=== PATIENT | female | born 1940 | race Caucasian/White ===

== ENCOUNTER 2016-11-13 21:09 | Emergency (ER) | payer MEDICARE ==
--- NOTE | ~2016-11-13 | CT2 ---
[facility] A Service of [facility] RADIOLOGY TEXT RESULTS PATIENT: ROBYN ARELLANO LOCATION: [facility] : 38 UNIT #: [id number] AGE: [address]: Jag Crow MD SEX: F ORDER DR: [id number] [facility] [address] [place], [place] [address] [id number] E MR#: [id number] Acc #: [id number] NAME: ROBYN ARELLANO : 1940 SEX: F STUDY DATE/TIME: 11/13/2016 23:52 UNIT: [facility] ROOM: STUDY DESCRIPTION: CT Abd and Pelv W Cont Attending Physician: Jag Crow M.D. Ordering Physician: Jag Crow M.D. Primary Care Physician: Tomas Torrez M.D. MEDICAL IMAGING REPORT This report is preliminary unless electronic signature is present EXAM Abdomen and pelvis CT with contrast, 11/13/2016. INDICATION 75-year-old female with right upper quadrant pain 2 days and nausea. History of hysterectomy, colectomy, diverticulitis. TECHNIQUE Contrast-enhanced abdomen and pelvis CT was performed. This CT exam was performed with one or more of the following radiation dose reduction techniques: automatic exposure control, adjustment of mA and/or kV according to patient size, and iterative reconstruction. COMPARISON STUDIES We have no comparison studies. FINDINGS CT ABDOMEN: Included lung bases demonstrate emphysema and mild scarring and atelectasis. The heart is enlarged. No pericardial or pleural effusion. Aorta demonstrates atherosclerotic change. Spleen, adrenal glands, and pancreas are unremarkable. Gallbladder is surgically absent. Liver unremarkable. Kidneys atrophic and demonstrate cysts. No hydronephrosis. CT PELVIS: Bladder unremarkable. Uterus surgically absent. No drainable fluid collection in the pelvis. Postop changes of the sigmoid colon present. Appendix normal. No inflammatory change of the bowel or obstruction. Inguinal canals unremarkable. There is degenerative change in the lower lumbar spine. No suspicious bone lesion. IMPRESSION [facility] A Service of [facility] RADIOLOGY TEXT RESULTS PATIENT: ROBYN ARELLANO LOCATION: [facility] : 38 UNIT #: [id number] AGE: [address]: Jag Crow MD SEX: F ORDER DR: 1. No clearly acute process identified. The appendix is normal. There is no bowel obstruction or focal area of inflammatory change and there is no drainable fluid collection. 2. Incidental renal cysts in the neck. 3. Status post cholecystectomy and hysterectomy. Status post sigmoid colonic resection and reanastomosis. Dictated by... Hari Ca M.D. THIS IS AN ELECTRONICALLY VERIFIED REPORT Hari Ca M.D. at 11/14/2016 10:10 PM LETY/abena TD: 11/14/2016 12:40 JOB #: [id number] MEDICAL IMAGING REPORT Page 1 of 1 COPY
[~2016-11-13 21:09] MED LIST: ALTACE PO; ATENOLOL PO; MOBIC PO; NEURONTIN PO; NORVASC PO; PHENERGAN PO; PRILOSEC40 MG PO; VICODIN 5/500 T1 TAB PO; ZANTAC PO; ZESTORETIC 20/11 TAB PO
[2016-11-13 22:13] LABS: BASOPHIL# 0.1 X10e3 (0-0.3); EOSINOPHIL# 0.1 X10e3 (0-0.7); EOSINOPHIL% 1.1 % (0.0-7.0); HEMATOCRIT 34.9 % (35.0-45.0); HEMOGLOBIN 11.8 gm/dL (12.0-16.0); LYMPHOCYTE# 3.6 X10e3 (1.0-3.5); LYMPHOCYTE% 33.1 % (17.0-45.0); MEAN CELL VOLUME 83.5 FL (83-96); MEAN CORPUSCULAR HEMOGLOBIN 28.2 PG (28-34); MEAN CORPUSCULAR HGB CONC 33.7 g/dL (30-36); MEAN PLATELET VOLUME 8.7 FL (6.5-11.5); NEUTROPHIL% 55.8 % (40-75); PLATELET COUNT 288 X10e3 (140-420); RED BLOOD COUNT 4.18 X10e (3.90-5.30); RED CELL DISTRIBUTION WIDTH 15.1 % (11.0-15.5); WHITE BLOOD COUNT 10.8 X10e3 (4.0-10.5)
[2016-11-13 22:14] LABS: DIFF IND NO
[2016-11-13 22:36] LABS: BILIRUBIN, DIRECT 0.2 mg/dL (0.0-0.2); BILIRUBIN,INDIRECT 0.2 mg/dL (0.0-0.9); BILIRUBIN,TOTAL 0.4 mg/dL (0.2-2.0); GLOM FILT RATE Estimated 54.3 mL/min (>60); POTASSIUM 3.4 mmol/L (3.5-5.1); PROTEIN TOTAL SERUM 7.2 g/dL (6.0-8.3)
[2016-11-13 22:44] LABS: URINE SOURCE CLEAN CATCH
[2016-11-13 22:48] LABS: URINE APPEARANCE CLEAR; URINE BILIRUBIN NEG (NEG); URINE BLOOD NEG (NEG); URINE COLOR YELLOW; URINE GLUCOSE NEG (NEG); URINE KETONE NEG (NEG); URINE LEUKOCYTE ESTERASE 1+ (NEG); URINE NITRATE NEG (NEG); URINE PROTEIN NEG (NEG); URINE SPECIFIC GRAVITY 1.016 (1.003-1.035)
[2016-11-13 22:51] LABS: URBCS1 AUWI 0-2 /[HPF] (0-2); URINE BACTERIA AUWI NEG (NEGATIVE); URINE SQUAMOUS EPITHELIAL CELL OCC /[HPF]
[2016-11-13 22:53] LABS: CULTURE INDICATED? NO
== END 2016-11-14 01:20 | disposition home or self-care (01) ==
LOC: CED 21:09
PROVIDERS: Emergency Medicine
DX: R10.84 Generalized abdominal pain (principal); R11.0 Nausea; R19.7 Diarrhea, unspecified; Z90.49 Acquired absence of other specified parts of digestive tract; F17.200 Nicotine dependence, unspecified, uncomplicated
CPT/HCPCS: 36415; 74177; 80048; 80076; 81003; 83690; 85025; 94640; 96361; 96372; 96374; 99284; J0500; J2405; Q9967

== ENCOUNTER 2017-01-18 20:44 | Emergency (ER) | payer MEDICARE ==
--- NOTE | ~2017-01-18 | EKG ---
PATIENT: ROBYN ARELLANO UNIT #: [id number] Ventricular Rate: 80 BPM Atrial Rate: 77 BPM QRS Duration: 82 ms Q-T Interval: 376 ms QTC Calculation(Bezet): 433 ms Calculated R Parkman: 46 degrees Calculated T Parkman: 59 degrees Diagnosis Line: Atrial fibrillation Diagnosis Line: Abnormal ECG Diagnosis Line: No previous ECGs available Diagnosis Line: Confirmed by KEM RAMOS MD ([id number]) on Diagnosis Line: 01/19/2017 3:19:39 PM INTERPRETING MD: RACHEL TREJO
--- NOTE | ~2017-01-18 | CR72 ---
[facility] A Service of [facility] RADIOLOGY TEXT RESULTS PATIENT: ROBYN ARELLANO LOCATION: [facility] UNIT : 36 UNIT #: [id number] AGE: [address]: Erlinda Phillip MD SEX: F ORDER DR: [id number] [facility] [address] [place], [place] [address] [id number] E MR#: [id number] Acc #: [id number] NAME: ROBYN ARELLANO. : 1940 SEX: F STUDY DATE/TIME: 01/18/2017 22:24 UNIT: [facility] ROOM: STUDY DESCRIPTION: CR Chest Single View Portable Attending Physician: Erlinda Phillip M.D. Ordering Physician: Erlinda Phillip M.D. Primary Care Physician: Austyn Russo M.D. MEDICAL IMAGING REPORT This report is preliminary unless electronic signature is present EXAM Portable chest 01/18/2017 HISTORY Shortness of breath, dyspnea for 4 days, cough and chest congestion. FINDINGS The heart is enlarged but stable compared with 06/07/2014. There is minimal infiltrate or atelectasis which partially obscures the inferior left cardiac border. Lungs are otherwise clear. There are no pleural effusions. IMPRESSION 1. Stable cardiomegaly compared with 06/07/2014. 2. Minimal infiltrate or atelectasis partially obscures the inferior left cardiac border. Dictated by... Tomás Newman M.D. THIS IS AN ELECTRONICALLY VERIFIED REPORT Tomás Newman M.D. at 01/19/2017 10:42 AM SARINA/larry TD: 01/19/2017 08:17 JOB #: [id number] MEDICAL IMAGING REPORT Page 1 of 1 COPY
[2017-01-18 23:37] LABS: POC - CKMB 1.9 ng/mL (0.0-7.9); POC - TROPONIN <0.05 ng/mL (<=0.05)
[2017-01-18 23:38] LABS: BASOPHIL% 0.5 % (0-2.5); DIFF IND NO; EOSINOPHIL# 0.1 X10e3 (0-0.7); EOSINOPHIL% 1.2 % (0.0-7.0); HEMATOCRIT 33.3 % (35.0-45.0); HEMOGLOBIN 11.1 gm/dL (12.0-16.0); LYMPHOCYTE# 1.2 X10e3 (1.0-3.5); LYMPHOCYTE% 12.6 % (17.0-45.0); MEAN CELL VOLUME 84.9 FL (83-96); MEAN CORPUSCULAR HEMOGLOBIN 28.3 PG (28-34); MEAN CORPUSCULAR HGB CONC 33.3 g/dL (30-36); MEAN PLATELET VOLUME 9.4 FL (6.5-11.5); MONOCYTE# 0.2 X10e3 (0-1.0); MONOCYTE% 2.5 % (3.0-12.0); NEUTROPHIL# 7.8 X10e3 (1.5-7.1); NEUTROPHIL% 83.2 % (40-75); PLATELET COUNT 282 X10e3 (140-420); RED BLOOD COUNT 3.93 X10e (3.90-5.30); RED CELL DISTRIBUTION WIDTH 14.7 % (11.0-15.5); WHITE BLOOD COUNT 9.4 X10e3 (4.0-10.5)
[2017-01-19 00:03] LABS: ALBUMIN SERUM 4.2 g/dL (3.5-5.0); BILIRUBIN, DIRECT 0.1 mg/dL (0.0-0.2); BILIRUBIN,INDIRECT 0.5 mg/dL (0.0-0.9); BILIRUBIN,TOTAL 0.6 mg/dL (0.2-2.0); BUN/CREATININE RATIO 11.11; CALCIUM SERUM 8.8 mg/dL (8.4-10.2); CREATININE SERUM 0.9 mg/dL (0.6-1.4); GLOM FILT RATE Estimated 61.3 mL/min (>60); POTASSIUM 4.3 mmol/L (3.5-5.1); PROTEIN TOTAL SERUM 7.2 g/dL (6.0-8.3)
== END 2017-01-19 01:44 | disposition home or self-care (01) ==
LOC: CED 20:44
PROVIDERS: Emergency Medicine
DX: J44.1 Chronic obstructive pulmonary disease with (acute) exacerbation (principal); I48.91 Unspecified atrial fibrillation; I10 Essential (primary) hypertension; F17.210 Nicotine dependence, cigarettes, uncomplicated; Z79.899 Other long term (current) drug therapy
CPT/HCPCS: 36415; 71010; 80048; 80076; 82553; 84484; 85025; 93005; 94640; 96374; 99284; J2930